=== PATIENT | female | born 1930 | race Caucasian/White ===

== ENCOUNTER 2016-10-10 13:06 | Outpatient (CLI) | payer MEDICARE ==
--- NOTE | 2016-10-10 14:04 | Diagnostic Imaging Report ---
[facility] [address] [facility].[address] [address] Report Submission Date: Oct 10, 2016 1:30:22 PM VOCATIONAL REHAB CONSULTANT Patient Study Name: HERMAN DELCID Date: Oct 10, 2016 1:16:45 PM VOCATIONAL REHAB CONSULTANT Modality Type: CR Gender: F Description: CHEST : 32 Institution: [facility] Physician RAMON CAICEDO - OP Chest two views HISTORY: Cough and congestion FINDINGS: A calcified left lung granuloma is observed. The lungs are clear without infiltrate or pleural effusion. Aortic atherosclerosis is observed. Heart size and pulmonary vascularity are normal. IMPRESSION: No acute abnormality. Electronically signed on Oct 10, 2016 1:30:22 PM VOCATIONAL REHAB CONSULTANT by: Toni SOUSA
== END 2016-10-10 13:07 ==
LOC: RAD 13:06
PROVIDERS: ATTEND Family Medicine
DX: R05 Cough (principal)
CPT/HCPCS: 71020

== ENCOUNTER 2016-11-02 09:39 | Outpatient (CLI) | payer MEDICARE | END 2016-11-02 09:40 | LOC: LAB 09:39 | PROVIDERS: ATTEND Family Medicine | DX: R50.9 Fever, unspecified (principal) | CPT/HCPCS: 87400 ==

== ENCOUNTER 2017-06-12 13:53 | Outpatient (CLI) | payer MEDICARE, OTHER ==
--- NOTE | 2017-06-12 16:37 | Diagnostic Imaging Report ---
RAMON CAICEDO~ [facility] [address] [address] ~ ~ ~ ~ Report Submission Date: Jun 12, 2017 2:17:36 PM CDT Patient ~ Study Name: HERMAN DELCID ~ Date: Jun 12, 2017 1:55:40 PM CDT ~ Modality Type: CR Gender: F ~ Description: UPPER EXTREMITY : 34 ~ Institution: [facility] Physician: RAMON CAICEDO ~ ~ ~ ~ Examination: Plain film wrist History: Wrist discomfort Comparison exams: None available Findings: 3 views the wrist demonstrates generalized osteopenia. Fracture involving the posterior margin of the distal radius. Posterior angulation. Questionable ulna styloid fracture. Carpal bones without fracture. No widening of the scapholunate space. 1st carpometacarpal degenerative changes. Impression: Distal radial fracture with likely ulna styloid fracture/avulsion. Generalized osteopenia. ~ Electronically signed on Jun 12, 2017 2:17:36 PM CDT by: Joe SOUSA
== END 2017-06-12 13:54 ==
LOC: RAD 13:53
PROVIDERS: ATTEND Family Medicine
DX: M25.432 Effusion, left wrist (principal); M25.532 Pain in left wrist; W19.XXXA Unspecified fall, initial encounter; Y93.9 Activity, unspecified; Y99.9 Unspecified external cause status
CPT/HCPCS: 73110

== ENCOUNTER 2017-07-25 10:49 | Outpatient (CLI) | payer MEDICARE ==
--- NOTE | 2017-07-25 15:34 | Diagnostic Imaging Report ---
RAMON CAICEDO [facility] [address] [facility].[address] [address] Report Submission Date: Jul 25, 2017 12:29:15 PM CDT Patient Study Name: HERMAN DELCID Date: Jul 25, 2017 11:08:40 AM CDT Modality Type: CR Gender: F Description: UPPER EXTREMITY : 32 Institution: [facility] Physician: RAMON CAICEDO Examination: Plain film wrist History: Wrist fracture Comparison exams: 12 June 2017 Findings: 3 views the wrist demonstrates diffuse osteopenia. Generalized articular degenerative changes. Fracture deformity involving the distal radius. Degree of impaction/resorption has increased since the prior study. Lucency involving the fracture line. Mild callus formation. Impression: Osteopenia and degenerative changes. Distal radial fracture with suggestion for component of nonunion. Electronically signed on Jul 25, 2017 12:29:15 PM CDT by: Joe SOUSA
== END 2017-07-25 10:50 ==
LOC: RAD 10:49
PROVIDERS: ATTEND Family Medicine
DX: S52.532D Colles' fracture of left radius, subsequent encounter for closed fracture with routine healing (principal)
CPT/HCPCS: 73110

== ENCOUNTER 2017-08-21 13:17 | Outpatient (CLI) | payer MEDICARE, OTHER ==
--- NOTE | 2017-08-21 14:29 | Diagnostic Imaging Report ---
[facility] [address] [facility] [address] [address] Report Submission Date: Aug 21, 2017 2:03:56 PM [employer] COOK Patient Study Name: HERMAN DELCID Date: Aug 21, 2017 1:49:08 PM [employer] Modality Type: CR Gender: F Description: PELVIS : 32 Institution: [facility] Physician: CYNTHIA Examination: Plain film hip History: Hip discomfort Comparison exams: None provided Findings: 2 views of the hip demonstrates osteopenia. No fracture no dislocation. Articular spurring. Groin vascular calcifications. Impression: Osteopenia and degenerative changes. No acute appearing osseous abnormality. Electronically signed on Aug 21, 2017 2:03:56 PM [employer] C[employer] by: Joe SOUSA
== END 2017-08-21 13:18 ==
LOC: RAD 13:17
PROVIDERS: ATTEND Family Medicine
DX: W19.XXXA Unspecified fall, initial encounter (principal); R52 Pain, unspecified

== ENCOUNTER 2017-09-13 08:37 | Outpatient (CLI) | payer MEDICARE, OTHER ==
--- NOTE | 2017-09-13 14:13 | Diagnostic Imaging Report ---
RAMON CAICEDO [facility] [address] [facility].[address] [address] Report Submission Date: Sep 13, 2017 10:02:48 AM GEOLOGY SCIENTIST Patient Study Name: HERMAN DELCID Date: Sep 13, 2017 8:46:20 AM GEOLOGY SCIENTIST Modality Type: CR Gender: F Description: UPPER EXTREMITY : 32 Institution: [facility] Physician: RAMON CAICEDO Examination: Plain film wrist History: Prior fracture. Comparison exams: 25 July 2017 Findings: 3 views the wrist demonstrates diffuse osteopenia. Region of sclerosis involving the distal radius; location of prior fracture. Evidence for impaction. Ulna styloid avulsion. Articular degenerative changes. Impression: Sclerosis/impaction of the distal radius fracture. Limited healing. Osteopenia and degenerative changes. Electronically signed on Sep 13, 2017 10:02:48 AM GEOLOGY SCIENTIST by: Joe SOUSA
== END 2017-09-13 08:45 ==
LOC: RAD 08:37
PROVIDERS: ATTEND Family Medicine
DX: S62.92XA Unspecified fracture of left hand, initial encounter for closed fracture (principal)
CPT/HCPCS: 73110

== ENCOUNTER 2019-04-29 07:20 | Outpatient (CLI) | payer MEDICARE, OTHER | END 2019-04-29 07:23 | LOC: LAB 07:20 | PROVIDERS: ATTEND Family Medicine | DX: E03.9 Hypothyroidism, unspecified (principal) | CPT/HCPCS: 84443 ==

== ENCOUNTER 2019-06-03 07:00 | Outpatient (CLI) | payer MEDICARE, OTHER | END 2019-06-03 07:03 | LOC: LAB 07:00 | PROVIDERS: ATTEND Family Medicine | DX: I10 Essential (primary) hypertension (principal); E03.9 Hypothyroidism, unspecified; E11.9 Type 2 diabetes mellitus without complications | CPT/HCPCS: 36415; 84443; P9604 ==

== ENCOUNTER 2019-06-06 11:24 | Outpatient (CLI) | payer MEDICARE, OTHER ==
--- NOTE | 2019-06-12 09:37 | Diagnostic Imaging Report ---
[facility] [address] [facility].[address] [address] Report Submission Date: Jun 06, 2019 11:52:17 AM CDT Patient Study Name: HERMNA DELCID Date: Jun 06, 2019 11:21:34 AM CDT Modality Type: DX Gender: F Description: ABDOMEN 1VIEW : 32 Institution: [facility] Physician: CYNTHIA Abdomen AP History: Constipation Findings: Normal gas pattern. Stool seen throughout the colon consistent with fecal retention. No bowel dilatation. Impression: Fecal retention Electronically signed on Jun 06, 2019 11:52:17 AM CDT by: Mal SOUSA
== END 2019-06-06 11:26 ==
LOC: RAD 11:24
PROVIDERS: ATTEND Family Medicine
DX: D62 Acute posthemorrhagic anemia (principal); G30.9 Alzheimer's disease, unspecified; K59.00 Constipation, unspecified; F32.9 Major depressive disorder, single episode, unspecified; I25.2 Old myocardial infarction; G47.00 Insomnia, unspecified; F41.9 Anxiety disorder, unspecified; I10 Essential (primary) hypertension; I25.10 Atherosclerotic heart disease of native coronary artery without angina pectoris; M19.90 Unspecified osteoarthritis, unspecified site
CPT/HCPCS: 74018

== ENCOUNTER 2019-06-26 10:00 | Outpatient (CLI) | payer MEDICARE, OTHER ==
[2019-07-07 14:49] LABS: A1C 8.8 % (<5.7); eGFR (Non-African) 35
== END 2019-06-26 10:15 ==
LOC: LAB 10:00
PROVIDERS: ATTEND Family Medicine
DX: I25.10 Atherosclerotic heart disease of native coronary artery without angina pectoris (principal); E11.9 Type 2 diabetes mellitus without complications; I10 Essential (primary) hypertension
CPT/HCPCS: 36415; 80053; 83036; P9604

== ENCOUNTER 2019-09-18 06:35 | Outpatient (CLI) | payer MEDICARE, OTHER ==
[2019-09-18 08:44] LABS: BASOPHILS % 2 % (0-2); SEGMENTED NEUTROPHILS % 47 % (39-79)
== END 2019-09-18 06:40 ==
LOC: LAB 06:35
PROVIDERS: ATTEND Family Medicine
DX: I10 Essential (primary) hypertension (principal)
CPT/HCPCS: 36415; 85025; P9604

== ENCOUNTER 2019-09-25 06:10 | Outpatient (CLI) | payer MEDICARE, OTHER ==
[2019-09-25 09:57] LABS: NEUTROPHILS # 2.7 # k/uL (1.4-7.7)
[2019-09-25 09:58] LABS: BASOPHILS % 1 % (0-2); SEGMENTED NEUTROPHILS % 51 % (39-79); eGFR (Non-African) 37
[2019-09-25 09:59] LABS: A1C 8.3 % (<5.7); HDL 48 mg/dL (>40)
== END 2019-09-25 06:20 ==
LOC: LAB 06:10
PROVIDERS: ATTEND Family Medicine
DX: I25.10 Atherosclerotic heart disease of native coronary artery without angina pectoris (principal); I10 Essential (primary) hypertension; R60.1 Generalized edema
CPT/HCPCS: 36415; 80053; 80061; 80164; 83036; 84443; 85025; P9603

== ENCOUNTER 2019-10-02 06:50 | Outpatient (CLI) | payer MEDICARE, OTHER | END 2019-10-02 06:55 | LOC: LAB 06:50 | PROVIDERS: ATTEND Family Medicine | DX: I10 Essential (primary) hypertension (principal); I25.10 Atherosclerotic heart disease of native coronary artery without angina pectoris | CPT/HCPCS: 36415; 80164; P9604 ==